=== PATIENT | female | born 1980 | race Caucasian/White ===

== ENCOUNTER 2020-06-16 17:39 | Emergency (ER) | payer OTHER ==
[~2020-06-16] VITALS: Ht 160 cm; Wt 72.6 kg
== END 2020-06-16 21:37 | disposition home or self-care (01) ==
LOC: ER 17:39
DX: K29.20 Alcoholic gastritis without bleeding (principal); F10.129 Alcohol abuse with intoxication, unspecified; Y90.9 Presence of alcohol in blood, level not specified